=== PATIENT | female | born 1950 | race Caucasian/White ===

== ENCOUNTER 2018-04-03 09:37 | Inpatient (IN) | payer OTHER ==
[2018-04-03] MEDS ORDERED: ASPIRIN 81 MG CHEWABLE TAB PO ONE (10:17)
--- NOTE | 2018-04-03 10:17 | EDPHY ---
General - History Smoking Status: Former smoker Time Seen by Provider: 04/03/18 09:57 Narrative: CLINICAL IMPRESSION: Angina, chest tightness ASSESSMENT/PLAN: 67-year-old female with a reported past medical history of coronary artery disease by heart scan as well as an elevated calcium score of 250 presents to the emergency department with exertional chest pain yesterday and nonexertional chest pain today. Pain is not radiating and is not associated with nausea, vomiting, shortness of breath. Patient reports some left arm tingling. EKG shows normal sinus rhythm with no acute ST or T-wave changes, reviewed with Dr. Lagunas. Troponin negative. Lab work reassuring. Chest x-ray with no acute cardiopulmonary findings. Patient was given aspirin. She has a heart score 5. Based on this and risk factors, she will be admitted to the hospital for further cardiac evaluation. Patient is agreeable to this plan. She was stabilized in the ED prior to admission. Case discussed between myself and Arielle with hospitalist service. DIFFERENTIAL DX: Differential diagnosis includes but not limited to myocardial ischemia, pulmonary embolus, chest wall pain, pleural inflammation, musculoskeletal chest wall pain, aortic aneurysm, and pulmonary infectious causes. ED PROCEDURES: See lab and/or imaging results below ED COURSE: 10:13 a.m.: Patient seen and assessed by myself. EKG shows normal sinus rhythm , no acute ST or T-wave changes, reviewed with Dr. Lagunas. Plan for IV, fluid bolus, aspirin, chest x-ray, troponin. Patient seen examined by Dr. Tyler as well CHIEF COMPLAINT: Chest pain x1 day HPI: This is a 67-year-old female with a self-reported history of coronary artery disease who presents to the emergency department with chest tightness intermittently since yesterday. Patient reports in December of [address] coronary study with Dr. Clemens office and was told that she had "a lot of plaque in her coronaries" and that her calcium score was 250. She never consulted with a vehicle sales professional nor has she ever had a stress test or echocardiogram. She has been taking herbal remedies to help thin her blood and keep blood pressure and cholesterol controlled. She reports yesterday while shoveling snow off of her steps she developed substernal chest pressure. She stopped shoveling and the discomfort went away. This morning while laying on her left side in bed she developed chest pressure again and a "funny sensation in the left arm". She then reported to the ED. She is currently chest pain- free. No associated abdominal pain, nausea, vomiting. She reports having normal carotid artery scans. No radiating pain to the neck jaw or back. No recent illness, fever or chills. No cough. No underlying pulmonary disease. She reports her mother of vascular dementia but there is no known cardiac history in her family. She quit smoking in the . She does not drink alcohol. PAST MEDICAL HISTORY: Coronary artery disease, past history of kidney stones See nurse/triage notes for additional history if applicable Pertinent Past Surgical History: None reported Family History: Mother with vascular dementia Social History: Quit smoking , nondrinker REVIEW OF SYSTEMS: All other systems negative Constitutional: No fever, no chills, appetite change. Eyes: No discharge, vision change ENT: No sore throat, congestion, ear pain. Cardiovascular: No chest pain, no palpitations. Respiratory: No cough, no shortness of breath. Gastrointestinal: No abdominal pain, no vomiting, diarrhea. Genitourinary: No hematuria, dysuria, flank pain, pelvic pain Musculoskeletal: No back pain, joint swelling, joint pain, myalgias. Skin: No rashes, color change. Neurological: No headache, dizziness, weakness. PHYSICAL EXAM: General Appearance: Alert, oriented, appropriate, cooperative, NAD, denies chest pain currently well hydrated, non-toxic appearing, hypertensive, no hypoxia. HEENT:Oropharynx clear is no erythema or exudates, no tonsillar hypertrophy or asymmetry. Dentition without abnormality.] Neck: Supple, nontender, no lymphadenopathy, no midline pain, FROM, no meningismus. No carotid bruits auscultated Respiratory: There are no retractions, lungs are clear to auscultation. Cardiac: Regular rate and rhythm, no murmurs or gallops. Gastrointestinal: Abdomen is soft, nontender, bowel sounds normal, no masses/ hernia, no rigidity, guarding or focal peritoneal findings. Neurological: [ Alert and oriented x 3 Skin: Warm, dry, no rashes, no nodules on palpation. Musculoskeletal: Extremities are symmetrical, full range of motion, no tenderness, deformity, swelling, or erythema. No asymmetric leg swelling, calf pain or redness Psychiatric: Patient is oriented X 3, there is no agitation. MEDICAL DECISION MAKING: Patient was seen independently. Secondary supervising physician at time of evaluation was Dr. Lagunas. Diagnosis: Angina, chest tightness. New, requires workup Summary: See Assessment and Plan for summary of ED visit Clinical lab tests: ordered / reviewed. Independent visualization of images, tracing, or specimens: Yes. Decision to obtain medical records or history from someone other than the patient: No Review / Summarize previous medical records: None available Discussed patient with another provider: Dr. Lagunas, hospitalist Patient Progress: Stable for admission. (Joe Dillon) I evaluated patient independently of ZOYA Dillon and agree with her assessment and plan. Briefly, patient with concerning history of accelerating anginal type pain over last several days. Was unable to complete task of shovelling snow due to chest pain. HEART score not low risk and I discussed the need for her to be admitted for further evaluation. Reviewed EKG, no ischemic changes. Exam, regular rate and rhythm, lungs clear, alert, no edema. She agrees to plan. Concern for ACS. (Kristan Lagunas) - Objective Vital Signs: Initial Vital Signs Temperature (C) 36.7 C 04/03/18 09:45 Heart Rate 89 04/03/18 09:45 Respiratory Rate 16 04/03/18 09:45 Blood Pressure 158/104 H 04/03/18 09:45 O2 Sat (%) 99 04/03/18 09:45 O2 Delivery Mode Room Air Allergies/Adverse Reactions: Penicillins Allergy (Verified 04/03/18 12:04) Hives/Itching Sulfa (Sulfonamide Antibiotics) Allergy (Verified 04/03/18 12:04) Hives Home Medications: Medication Instructions Recorded Ascorbic Acid [Vitamin C 500 mg 500 mg PO DAILY 04/03/18 (*)] Calcium Carbonate [Oyster Shell 500 mg PO DAILY 04/03/18 Calcium 500 mg (*)] Cholecalciferol Vit D3 [Vitamin D3 1,000 units PO DAILY 04/03/18 (*)] Herbals/Supplements -Info Only 1 ea PO DAILY 04/03/18 Magnesium Oxide [Magnesium Oxide 400 mg PO DAILY 04/03/18 400 mg (*)] Vitamin B Complex [Vitamin B 1 each PO DAILY 04/03/18 Complex (OTC)] Laboratory Results: Laboratory Results 04/03/18 10:05 04/03/18 10:05 Medications Given: Ascorbic Acid (Vitamin C) 500 mg PO DAILY SABIHA Stop: 10/01/18 08:59 Last Admin: 04/04/18 10:34 Dose: 500 mg Aspirin (Aspirin) 325 mg PO DAILY SABIHA Stop: 10/01/18 09:14 Last Admin: 04/04/18 10:35 Dose: 325 mg Calcium Carbonate (Oyster Shell Calcium) 500 mg PO DAILY SABIHA Stop: 10/01/18 08:59 Last Admin: 04/04/18 10:35 Dose: 500 mg Cholecalciferol (Vitamin D) 1,000 units PO DAILY SABIHA Stop: 10/01/18 08:59 Last Admin: 04/04/18 10:34 Dose: 1,000 units Magnesium Oxide (Magnesium Oxide) 400 mg PO DAILY SABIHA Stop: 10/01/18 08:59 Last Admin: 04/04/18 10:35 Dose: 400 mg Temazepam (Restoril) 15 mg PO HS PRN PRN Reason: Sleep/Insomnia Stop: 09/30/18 15:42 Last Admin: 04/03/18 21:55 Dose: 15 mg Vitamin B Complex (Vitamin B Complex) 1 ea PO DAILY SABIHA Stop: 10/01/18 08:59 Last Admin: 04/04/18 10:34 Dose: 1 ea Discontinued Medications Aspirin (Aspirin) 324 mg PO EDNOW ONE Stop: 04/03/18 10:18 Last Admin: 04/03/18 10:42 Dose: 324 mg Point of Care Test Results: Chemistry 04/03/18 04/03/18 11:14 10:12 POC Troponin I 0.01 ng/mL ng/mL 0.01 ng/mL ng/mL (0.00-0.08) (0.00-0.08) Departure - Departure Disposition: [facility] Inpatient Acute Clinical Impression: Unstable angina, Chest tightness Condition: Fair
[2018-04-03 10:26] LABS: PLATELET COUNT 226 10^3/uL (150-400)
[2018-04-03] MEDS ORDERED: ONDANSETRON 4 MG/2 ML VIAL IVP PRN (14:20)
[2018-04-03] MEDS ORDERED: ONDANSETRON DISINTEGRATING 4 MG TAB PO PRN (14:20)
[2018-04-03] MEDS ORDERED: ACETAMINOPHEN 325 MG TAB PO PRN (14:20)
--- NOTE | 2018-04-03 14:57 | GHP ---
[f rep st] HISTORY AND PHYSICAL DATE OF ADMISSION: 04/03/2018 Ms. Moura is a 67-year-old female with history of a previous positive calcium score who presented with an episode of exertional chest pain on Sunday, which was 3 days prior to admission. She was feeling anxious and just unsettled all day. Yesterday she [place] finally warmed up. It was wet, heavy snow. She felt a squeezing in her chest that resolve d. It did not radiate. It was not associated with diaphoresis or shortness of breath. It sounds li ke she occasionally does some workout tapes and does not have a history of exertional anginal-type sy mptoms. She does not have PND, orthopnea, or lower extremity edema. She does not have heart failure symptoms. No cough. No fever. No chills. She has a family history of vascular dementia and stroke in her mother. REVIEW OF SYSTEMS: Complete 10-point review of systems conducted negative except as noted in the HPI . PAST MEDICAL HISTORY: Positive calcium score. ALLERGIES: Penicillin and sulfa. MEDICATIONS: A robust assortment of supplements including vitamin C, calcium carbonate, vitamin D3, mag oxide, and vitamin B. SOCIAL HISTORY: She lives in [facility]. No tobacco. Rare alcohol. FAMILY HISTORY: As in the HPI. PHYSICAL EXAMINATION: PRESENTING VITALS: Temperature 36.7; blood pressure 158/104, now 110/75; puls e 89, now 58; breathing 16 times a minute; 99% on room air. GENERAL: No acute distress. HEENT: Sc lerae anicteric. Oropharynx clear. Mucous membranes moist. NECK: Supple. No lymphadenopathy or J VD. LUNGS: Clear to auscultation bilaterally. HEART: S1, S2. ABDOMEN: Soft, nontender, nondiste nded. LOWER EXTREMITIES: No edema. Calves are nontender. SKIN: Without rash. NEUROLOGIC: Nonfo roxy. LABORATORY DATA: White count 4, hematocrit 41, platelets 226,000. Sodium 140, potassium 4.3, chlori de 107, bicarb 23, BUN 19, creatinine 0.8, glucose 120. [id number] troponin is 0.01 x 2. EKG interpreted by nc shows sinus at 62 with normal axis and intervals. No ST or T-wave changes. est x-ray shows no acute cardiopulmonary disease. I have discussed the case with Joe Dillon of the emergency department. ASSESSMENT/PLAN: A 67-year-old female with exertional chest pain concerning for angina. 1. Angina. The patient is not having a myocardial infarction. We will repeat one more troponin thi s afternoon and perform exercise stress test in the morning with nuclear imaging. 2. Hyperglycemia. We will check a metabolic panel in the morning. Nonfasting sample barely elevate d. 3. History of positive calcium score. We will check a lipid panel in the morning. 4. Hypertension present on admission, resolved. This is likely standard emergency room presenting h ypertension. DISPOSITION: On observation status. /[id number]/MODL
[2018-04-03] MEDS: TEMAZEPAM 15 MG CAP PO PRN (21:55)
[2018-04-04] MEDS ORDERED: Herbals/Supplements -Info Only PO SCH (09:00)
--- NOTE | 2018-04-04 09:15 | HOSPPROG ---
Hospitalist Progress Note Assessment/Plan: 67 yo F w here w likely anginal sx, + trop cp: cardiology to see today for likely cath start asa hyperlipidemia: ldl 112 warrants statin this situation she is resistant htn: variable she states she does not have htn dispo: pending cardiology eval Subjective: trop low level +. no events tele (interp by me). case d/w dr vanessa Objective: Vital Signs Temp Pulse Resp BP Pulse Ox 36.3 C 65 16 99/66 L 95 04/04/18 04:00 04/04/18 04:00 04/04/18 04:00 04/04/18 04:00 04/04/18 04:00 Laboratory Results 04/04/18 03:16 04/03/18 04/04/18 04/05/18 05:59 05:59 05:59 Intake Total 1400 Balance 1400 - Physical Exam Constitutional: no apparent distress, appears nourished Eyes: PERRL, anicteric sclera Ears, Nose, Mouth, Throat: moist mucous membranes, hearing normal Cardiovascular: regular rate and rhythym, no murmur, rub, or gallop Respiratory: no respiratory distress, no rales or rhonchi Gastrointestinal: normoactive bowel sounds, soft, non-tender abdomen Genitourinary: no bladder fullness, No guy in urethra Skin: warm, normal color Musculoskeletal: full muscle strength, no muscle tenderness Neurologic: AAOx3, sensation intact bilaterally Psychiatric: interacting appropriately Lymph, Heme, Immunologic: no cervical LAD ICD10 Worksheet Patient Problems: Problems Problem Status Onset Chest tightness Acute Unstable angina Acute
[2018-04-04] MEDS ORDERED: diphenhydrAMINE 25 MG CAP PO ONE (09:52)
[2018-04-04] MEDS ORDERED: DIAZEPAM 5 MG TAB PO ONE (09:52)
[2018-04-04] MEDS ORDERED: NITROGLYCERIN 0.4 MG BTL SL PRN (09:52)
[2018-04-04] MEDS ORDERED: FAMOTIDINE 20 MG TAB PO ONE (09:52)
[2018-04-04] MEDS ORDERED: NS 1,000 ML IV SCH ×2 (10:00→14:30)
[2018-04-04] MEDS: ASCORBIC ACID 500 MG TAB PO SCH (10:34)
[2018-04-04] MEDS: CHOLECALCIFEROL VIT D3 1,000 UNITS TAB PO SCH (10:34)
[2018-04-04] MEDS: VITAMIN B COMPLEX 1 EA CAP/TAB PO SCH (10:34)
[2018-04-04] MEDS: CALCIUM CARBONATE 500 MG TAB PO SCH (10:35)
[2018-04-04] MEDS: MAGNESIUM OXIDE 400 MG TAB PO SCH (10:35)
[2018-04-04] MEDS: ASPIRIN 325 MG TAB PO SCH (10:35)
--- NOTE | 2018-04-04 10:41 | GCON ---
[f rep st] CONSULTATION CARDIOLOGY CONSULT DATE OF CONSULTATION: 04/04/2018 REFERRING PHYSICIAN: Joey CHIEF COMPLAINT: Chest pain. HISTORY OF PRESENT ILLNESS: We were asked by Dr. Cook to visit with the patient. The patient is a pleasant 67-year-old female with a history of positive calcium score. She tells me that her score w as 250 based on December 2016, heart scan. She has been treating this with nattokinase and other sup plements. She has previously declined statin therapy. The only other significant history is kidney stone. Four days prior to admission, she was walking up hill and started to feel unusually short of breath. She general felt unwell the rest of that day. On Sunday, she was having intermittent symptoms of an xiety and hot flashes, which felt different than previous panic attacks. She felt there was somethin g wrong in her chest. The following day, which was 2 days prior to admission, she was shoveling snow and had squeezing chest pressure that resolved with rest. She has never had this symptom shoveling snow before. She had some radiation of pain to both shoulders. Then, yesterday, she presented to e ER due to intermittent sensation of anxiety and this hot flash, diaphoresis symptom. Overnight, he r troponin has become minimally positive. This morning, she was in her room trying to open the blind s and had some bilateral shoulder discomfort with a sensation of anxiety. She has not had palpitations or syncope. No lower extremity edema. Symptoms started 5 days ago and she previously exercise without limitation. REVIEW OF SYSTEMS: A full 10-point review of systems is performed and is negative, except that which is in history of Present Illness. ALLERGIES: Penicillin and sulfa. PAST MEDICAL HISTORY: 1. Positive calcium score as detailed above. 2. Kidney stone. OUTPATIENT MEDICATIONS: Several supplements, including vitamin C, calcium, vitamin D3, herbal supple ments, magnesium oxide, vitamin B. SOCIAL HISTORY: The patient lives alone. She does not smoke cigarettes. She rarely drinks alcohol. FAMILY HISTORY: Her mother had vascular dementia. DIAGNOSTIC DATA: EKG reviewed by me x2 shows sinus rhythm without ischemic changes. Chest x-ray reviewed by me shows no acute cardiopulmonary process. LABORATORY DATA: CBC is normal. Basic metabolic panel normal, except for BUN of 24. First 2 tropon ins were negative. At 1540 yesterday afternoon, it was 0.068 and at 2132 yesterday was 0.037. Her L DL cholesterol is 112. ASSESSMENT AND PLAN: 67-year-old female with known positive calcium score, borderline dyslipidemia, admitted with unstable angina and minimally elevated troponins. No ST deviation on her EKG. 1. Chest pain/unstable angina/coronary disease: I do not think that stress test is prudent given he r accelerating symptoms. We discussed the option of diagnostic and possibly therapeutic coronary ang iogram and she agrees to proceed. Risks, benefits, alternatives were reviewed in detail. This will be scheduled for this morning. She is currently n.p.o. I have added aspirin and Lipitor to her drug regimen. 2. Dyslipidemia: Her LDL cholesterol is mildly elevated at 112. Add statin therapy. More recommendations will follow after angiogram. /[id number]/MODL
[2018-04-04 10:59] LABS: PLATELET COUNT 217 10^3/uL (150-400)
[2018-04-04 11:10] LABS: INR 1.03 (0.83-1.16); PROTIME(PATIENT) 13.1 SEC (12.0-15.0)
[2018-04-04] MEDS: ATORVASTATIN CALCIUM 20 MG TAB PO SCH (11:55)
[2018-04-04] MEDS ORDERED: LIDOCAINE 1% 300 MG/30 ML SDV ONE (13:19)
[2018-04-04] MEDS ORDERED: IOPAMIDOL (ISOVUE-370) 150 ML BTL IV ONE (13:20)
[2018-04-04] MEDS ORDERED: MIDAZOLAM 2 MG/2 ML VIAL ONE ×2 (13:20→14:22)
[2018-04-04] MEDS ORDERED: fentaNYL 100 MCG/2 ML INJ ONE ×2 (13:20→14:22)
--- NOTE | 2018-04-04 13:45 | PDHPUP ---
History & Physical Update H&P update statement: This history and physical update is based on an assessment of the patient which was completed after admission or registration (within 24 hours), but prior to the surgery/procedure. H&P update: H&P reviewed & patient examined, no change in patient's condition since H&P completed
--- NOTE | 2018-04-04 13:46 | PDPROPOC ---
Sedation Plan of Care Sedation Plan of Care: vital signs stable, mental status noted, patient educated of risks, benefits, alternatives, patient can tolerate sedation ASA Classification: ASA 2 Planned drugs: fentanyl, midazolam Mallampati Score: Class 2 Mallampati Reference Image:
[2018-04-04] MEDS ORDERED: BIVALIRUDIN 250 MG/5 ML VIAL IV ONE (14:17)
[2018-04-04] MEDS ORDERED: EPINEPHrine 1 MG/10 ML SYR IVP ONE (14:17)
--- NOTE | 2018-04-04 14:20 | PDDXCAT ---
Diagnostic Cath Note - . Date: 04/04/18 Contract Administration Specialist: Justin Indication: other (unstable angina) - Procedure Access: right groin Procedure: left heart catheterization - Materials Left Heart Cath size: 6F Left Heart Cath materials: standard multipack (JL4, JR4, pigtail) - Findings-Left Heart Catheterization LM: The left main is long and bifurcates into the LAD and left circumflex. There is no left main coronary disease. LAD: There is a 95% mid LAD stenosis with mildly decreased rapidity of flow distal to this. 2 small diagonal branches with moderate ostial disease in each. LCX: The left circumflex is normal. There is a single large obtuse marginal with sub branches. No significant coronary disease. RCA: The right coronary artery is dominant. No significant coronary disease. EDP: 12 mm of mercury LVEF: 65% Wall motion: Normal - Findings-Right Heart Catheterization AO: 101/53. There is no aortic stenosis. Complications: none Estimated blood loss: <50ml Closure method: Angioseal Assessment: Critical single-vessel disease in the LAD. Unstable angina. Interventional consult with Dr. Danis Andrade. Plan: Plan for direct PCI of LAD lesion by Dr. Andrade. Patient Problems: Problems Problem Status Onset Unstable angina Acute Chest tightness Acute
--- NOTE | 2018-04-04 14:23 | ASMTCMCOM ---
CM Note CM Note Notes: 04/04/2018 Case Management Note Discussed pt during rounds today. Pt admitted for chest tightness. Pt to clinical lab specialist. There are no therapy evals ordered at this time. Case Management d/c poc: anticipating independent with follow up as directed. Case Management available if needs change. Date Signed: 04/04/2018 02:21 PM Electronically Signed By:Mee Lynch RN
[2018-04-04] MEDS ORDERED: PRASUGREL HCL 10 MG TAB PO ONE (14:30)
[2018-04-04] MEDS ORDERED: HYDROCODONE/APAP 5/325 TAB PO PRN (14:30)
[2018-04-04] MEDS ORDERED: ATROPINE SULFATE 1 MG/10 ML SYR IVP PRN (14:30)
[2018-04-04] MEDS ORDERED: PRASUGREL HCL 10 MG TAB ONE (14:32)
--- NOTE | 2018-04-04 14:36 | PDDXCAT ---
Diagnostic Cath Note - . Date: 04/04/18 Property Controller: Raymond Indication: other (CAD with acute coronary syndrome.) - Procedure Access: right groin Estimated blood loss: <50ml Closure method: Angioseal Assessment: Successful percutaneous coronary intervention of the left anterior descending using a single drug-coated stent. Intervention: Please refer to the diagnostic cardiac cath report by Dr. Susy Anderson. Briefly, that study demonstrated normal left ventricular systolic function and single vessel CAD with an 80% stenosis in the mid left anterior descending. Based on the patient's clinical history and diagnostic angiography, the decision was made to perform percutaneous coronary intervention of the left anterior descending. The patient received intravenous Angiomax. A 6 Dominican CLS 3.5 guide catheter was advanced to the left main. An Intuition guidewire was advanced to the apical portion of the LAD. Predilatation of the target lesion was performed using a 2.5 x 12 mm Emerge balloon. A 3.5x16 mm Synergy stent was then advanced into position and deployed at high pressure. Final angiograms demonstrated 0% residual stenosis and DO-III flow. Patient Problems: Problems Problem Status Onset Chest tightness Acute Unstable angina Acute
[2018-04-04] MEDS: TEMAZEPAM 15 MG CAP PO PRN (22:39)
--- NOTE | 2018-04-05 07:13 | PDMN ---
Medical Necessity Medical necessity: Change to IP, as of 04/04/18, per MD & MCG M-40; los >2 mn for ongoing management of unstable angina w/elevated troponins; requiring further monitoring, cardiac cath & med management
[2018-04-05 07:48] VITALS: BP 90/64
[2018-04-05] MEDS: CALCIUM CARBONATE 500 MG TAB PO SCH (08:32)
[2018-04-05] MEDS: ATORVASTATIN CALCIUM 20 MG TAB PO SCH (08:32)
[2018-04-05] MEDS: VITAMIN B COMPLEX 1 EA CAP/TAB PO SCH (08:32)
[2018-04-05] MEDS: MAGNESIUM OXIDE 400 MG TAB PO SCH (08:32)
[2018-04-05] MEDS: ASCORBIC ACID 500 MG TAB PO SCH (08:32)
[2018-04-05] MEDS: CHOLECALCIFEROL VIT D3 1,000 UNITS TAB PO SCH (08:32)
[2018-04-05] MEDS: ASPIRIN 325 MG TAB PO SCH (08:36)
[2018-04-05] MEDS ORDERED: PRASUGREL HCL 5 MG TAB PO SCH (09:00)
--- NOTE | 2018-04-05 09:09 | CPEKG ---
Test Reason : OPEN Blood Pressure : / mmHG Vent. Rate : 062 BPM Atrial Rate : 063 BPM P-R Int : 152 ms QRS Dur : 094 ms QT Int : 415 ms P-R-T Axes : 069 056 062 degrees QTc Int : 422 ms Sinus rhythm Confirmed by Kristan Lagunas ([id number]) on 04/05/2018 9:08:41 AM Referred By: Kristan Lagunas Confirmed By:Kristan Lagunas
--- NOTE | 2018-04-05 10:34 | PDCARPN ---
Cardiology Progress Note Assessment/Plan: Assessment/plan: 67-year-old female admitted with unstable angina. Found to have high-grade mid LAD stenosis treated with a 3.5 x 16 mm synergy stent. Also mild dyslipidemia. 1. Coronary disease/status post PCI: She appears stable. The importance of uninterrupted dual antiplatelet therapy was reviewed in detail with the patient. She agrees to take aspirin and Effient. Aspirin dose can be decreased to 81 mg in 1 month. Aspirin should continue for life. Effient at least 1 year. I have also spent a long time discussing the merits of statin therapy. She will consider whether not she wants to take a statin. She will consider enrollment in cardiac rehab. 2. Dyslipidemia: LDL is 112. Statin as above. She is stable for discharge from a cardiac standpoint. Follow up in 1 week for groin check. Enroll in cardiac rehab. 04/05/18 10:35 Subjective: She feels much better. No further episodes of anxious feeling, chest pain or dyspnea. Minimal right groin pain. Reviewed/Discussed With: hospitalist Objective: Vital Signs (8 Hrs) Temp Pulse Resp BP Pulse Ox 04/05/18 07:47 37.0 C 57 L 18 90/64 L 99 04/05/18 04:00 36.5 C 57 L 16 108/65 98 Intake/Output (24 Hrs) 04/04/18 04/05/18 04/06/18 05:59 05:59 05:59 Intake Total 200 Balance 200 Intake: Oral (ml) 200 Other: Intake Quantity Yes Sufficient Number of Voids Toilet 2 No acute distress JVP less than 10. Regular rate and rhythm without murmur gallop Lungs clear bilaterally wheeze rhonchi rales Right femoral arteriotomy site clean dry and intact. No bruit. No ecchymoses or hematoma. No lower extremity edema. Intact distal pulses Neuro alert and oriented x3 without gross focal neuro deficits. Appropriate mood and affect. Result Diagrams: 04/04/18 10:50 04/04/18 10:50 EKG: Sinus rhythm with anterior T-wave inversion ICD10 Worksheet Patient Problems: Problems Problem Status Onset Unstable angina Acute Chest tightness Acute
--- NOTE | 2018-04-05 10:48 | ASDISCHSUM ---
Discharge Information Plan Status:Home with No Needs Medically Cleared to Leave:04/04/2018 Discharge Date:04/04/2018 CM D/C Disposition:Home, Routine, Self-Care ADT D/C Disposition:Home, Routine, Self-Care Projected Discharge Date:04/04/2018 Transportation at D/C: Discharge Delay Reason: Follow-Up Date:04/04/2018 Discharge Slot: Final Diagnosis: Placement Information Patient Contact Information Contact Name:DANIELLA Relationship:Kyle Address: Work Phone: City: [facility] Phone: State/Zip Code: Email: Financial Information Financial Class:Medicare Primary Plan Desc:MEDICARE INPATIENT Primary Plan Number:[id number] Secondary Plan Desc:LIU Secondary Plan Number:[id number] Assessment Information LACE LACE Length of stay for Answers: Less than 1 day current admission Acuity / Level of Answers: No Care: Did the patient have an inpatient admission? Comorbidities - select Answers: Coronary Artery Disease all that apply # of Emergency department Answers: 1-2 visits in the last 6 months Score: 3 Date Signed: 04/05/2018 10:46 AM Electronically Signed By:Mee Lynch RN [facility] Progress Note CM Note CM Note Notes: 04/04/2018 Case Management Note Discussed pt during rounds today. Pt admitted for chest tightness. Pt to assistant laboratory director. There are no therapy evals ordered at this time. Case Management d/c poc: anticipating independent with follow up as directed. Case Management available if needs change. Date Signed: 04/04/2018 02:21 PM Electronically Signed By:Mee Lynch RN Case Management Discharge Plan Note Case Management Discharge Discharge Order Complete? Answers: Yes Patient to Obtain Answers: via Family Medications Transportation Arranged Answers: Family/Friends Discharge Comments Notes: 04/05/2018 Case Management Note Pt to d/c independent with follow up as directed. Date Signed: 04/05/2018 10:47 AM Electronically Signed By:Mee Lynch RN Intervention Information Intervention Type:*BHAVANI-Signed Date of Service:04/04/2018 10:20 AM Patient Type:Observation Staff Member:Ewa Hobbs Hours: Discipline: Severity: Comment:
--- NOTE | 2018-04-05 16:56 | GDS ---
[f rep st] DISCHARGE SUMMARY DISCHARGE DIAGNOSES: 1. Coronary artery disease, status post stent to the left anterior descending. 2. Mum-PL-gxyepopbz myocardial infarction. 3. Hyperlipidemia. HISTORY: The patient is a 67-year-old female who presented with chest pain. She had a troponin elev ation and her story was consistent with angina. Cardiology was consulted. She underwent cardiac cat heterization. She was found to have an LAD lesion that was stented. She will discharge on aspirin a nd Plavix. Her LDL is 112, which warrants statin therapy; however, she is resistant, but did take a prescription home and will consider taking it. DISCHARGE MEDICATIONS: Please see computerized record for full detailed list. New medication: 1. Aspirin 325 mg p.o. daily. 2. Effient 5 mg p.o. daily. 3. Lipitor 20 mg p.o. daily. ADDITIONAL DISCHARGE INSTRUCTIONS: 1. Continue Effient for 1 year. 2. Decrease aspirin dose 81 mg p.o. daily. In 1 month. 3. Follow up with Susy Anderson in 1 week for groin check. Greater than 30 minutes time was spent arranging this discharge. Patient seen examined by me on the day of discharge. /[id number]/MODL
--- NOTE | 2018-04-09 09:43 | PQFORM ---
PHYSICIAN QUERY FORM Needs Your Response This query form is being sent to you to assure this patient record is coded properly. Please respond to the question below: MERCHANT TAILOR QUESTION: Dr Davison Please help clarify some conflicting documentation on this patients chart. Discharge summary states Non STEMI but chart seems to be reflecting Unstable Angina with documentation showing - EKG x2 without ischemic changes - no ST or T wave changes troponin changes but - 'story consistent with unstable angina' h/p = patient is not having an RI. For correct coding purposes please clarify whether this patient had a Non Stemi RI or Unstable Angina ? _x_ Non ST Myocardial Infarction - troponin became POSITIVE __ Unstable angina __ Other (Please specify ) __ Unable to determine Thank You for your help Lanie [employer] Mgr INSTRUCTIONS FOR RESPONSE: Answer question by clicking on the "Edit Document" button. Move cursor to area below the stars. When complete, hit "Save." Click on the "Sign" button, then click "Sign" again. Type in your PIN and hit "Enter." MTDD
--- NOTE | 2018-04-10 11:05 | CPEKG ---
Test Reason : OPEN Blood Pressure : / mmHG Vent. Rate : 059 BPM Atrial Rate : 058 BPM P-R Int : 150 ms QRS Dur : 097 ms QT Int : 417 ms P-R-T Axes : 059 037 036 degrees QTc Int : 414 ms Sinus rhythm Incomplete right bundle branch block Confirmed by Sylvester Leary ([id number]) on 04/10/2018 11:05:34 AM Referred By: Jonathan Zaragoza Confirmed By:Sylvester Leary
--- NOTE | 2018-04-10 11:19 | CPEKG ---
Test Reason : OPEN Blood Pressure : / mmHG Vent. Rate : 061 BPM Atrial Rate : 050 BPM P-R Int : 162 ms QRS Dur : 097 ms QT Int : 388 ms P-R-T Axes : 063 049 075 degrees QTc Int : 391 ms Sinus rhythm, sinus arrhythmia Nonspecific T abnrm, anterolateral leads consider ischemia. Confirmed by Sylvester Leary ([id number]) on 04/10/2018 11:18:40 AM Referred By: Jonathan Zaragoza Confirmed By:Sylvester Leary
== END 2018-04-05 11:45 | disposition home or self-care (01) | DRG 247 ==
LOC: F2W 12:42 → OBSVTOIN 04-04 17:16
PROVIDERS: ADMIT Internal Medicine; ATTEND Internal Medicine
PROC: 027034Z Dilation of Coronary Artery, One Artery with Drug-eluting Intraluminal Device, Percutaneous Approach (ICD-10-PCS; principal; 2018-04-04)
PROC: B2101ZZ Fluoroscopy of Single Coronary Artery using Low Osmolar Contrast (ICD-10-PCS; 2018-04-04)
PROC: 4A023N8 Measurement of Cardiac Sampling and Pressure, Bilateral, Percutaneous Approach (ICD-10-PCS; 2018-04-04)
DX: I21.4 Non-ST elevation (NSTEMI) myocardial infarction (principal); I25.10 Atherosclerotic heart disease of native coronary artery without angina pectoris; E78.5 Hyperlipidemia, unspecified; Z87.891 Personal history of nicotine dependence; Z87.442 Personal history of urinary calculi
CPT/HCPCS: 84484-ER; C1725; C1760; C1769; C1874; C1887; C9600; G0378; J0583; J1644; J2250; J2270; J3010; Q9967

== ENCOUNTER 2018-04-05 21:25 | Emergency (ER) | payer OTHER ==
[2018-04-05] MEDS ORDERED: NS 500 ML IV ONE (21:41)
[2018-04-05 22:03] LABS: PLATELET COUNT 220 10^3/uL (150-400)
--- NOTE | 2018-04-05 22:26 | EDPHY ---
H & P Stated Complaint: DIZZY, CARDIAC STENT PLACED YESTERDAY Time Seen by Provider: 04/05/18 21:41 HPI/ROS: CHIEF COMPLAINT: Dizziness HISTORY OF PRESENT ILLNESS: 67-year-old female s/p cardiac stent placement yesterday presents with lightheadedness. Just prior to arrival, she was at home , began to feel slightly lightheaded and became concerned. Associated with slight nausea. The symptoms were transient and have now resolved. No chest pressure or shortness of breath. REVIEW OF SYSTEMS: complete 10 point ROS reviewed and is negative except for the noted elements in the HPI - Personal History Current Tetanus Diphtheria and Acellular Pertussis (TDAP): Yes - Medical/Surgical History Hx Asthma: No Hx Chronic Respiratory Disease: No Hx Diabetes: No Hx Cardiac Disease: Yes Hx Renal Disease: No Hx Cirrhosis: No Hx Alcoholism: No Hx HIV/AIDS: No Hx Splenectomy or Spleen Trauma: No Other PMH: CAD, Kidney stone, CARDIAC STENT 04/04/2018 - Social History Smoking Status: Former smoker Alcohol Use: Sober Drug Use: None - Physical Exam Exam: General Appearance: Alert, pleasant Eyes: Pupils equal and round, no conjunctival pallor ENT, Mouth: Mucous membranes moist Neck: Normal inspection Respiratory: Lungs are clear to auscultation Cardiovascular: Regular rate and rhythm, no murmur Gastrointestinal: Abdomen is soft and nontender Neurological: A&O, nonfocal, normal gait Skin: Warm and dry, no rash Extremities: Nontender, no pedal edema Psychiatric: Mood and affect normal Constitutional: Initial Vital Signs Temperature (C) 36.4 C 04/05/18 21:30 Heart Rate 76 04/05/18 21:30 Respiratory Rate 16 04/05/18 21:30 Blood Pressure 134/104 H 04/05/18 21:30 O2 Sat (%) 94 04/05/18 21:30 O2 Delivery Mode Room Air Allergies/Adverse Reactions: Penicillins Allergy (Verified 04/03/18 12:04) Hives/Itching Sulfa (Sulfonamide Antibiotics) Allergy (Verified 04/03/18 12:04) Hives Home Medications: Medication Instructions Recorded Ascorbic Acid [Vitamin C 500 mg 500 mg PO DAILY 04/03/18 (*)] Calcium Carbonate [Oyster Shell 500 mg PO DAILY 04/03/18 Calcium 500 mg (*)] Cholecalciferol Vit D3 [Vitamin D3 1,000 units PO DAILY 04/03/18 (*)] Herbals/Supplements -Info Only 1 ea PO DAILY 04/03/18 Magnesium Oxide [Magnesium Oxide 400 mg PO DAILY 04/03/18 400 mg (*)] Vitamin B Complex [Vitamin B 1 each PO DAILY 04/03/18 Complex (OTC)] Aspirin [Aspirin 325 mg (*)] 325 mg PO DAILY #30 tab 04/05/18 Atorvastatin Calcium [Lipitor 20 20 mg PO DAILY #30 tab 04/05/18 mg (*)] Effient 04/05/18 Prasugrel HCl [Effient 5mg (*)] 5 mg PO DAILY #30 tab 04/05/18 Medical Decision Making - Diagnostics EKG Interpretation: EKG interpreted by me reveals normal sinus rhythm, rate 60, biphasic T-waves in leads V2 and V3. Interpretation: Abnormal EKG. Similar to EKG dated 04/04/2018. ED Course/Re-evaluation: This patient presents with transient lightheadedness and nausea after recent cardiac stent placement. Vital signs are normal and manager of sales reveals normal sinus rhythm. Stat EKG reveals nonspecific T-wave abnormalities in the anterior leads. Laboratory tests reveal elevated BUN, consistent with dehydration. IV normal saline 500 mL given and patient drank a bottle of water. Feels better. Feel that she is safe and stable for discharge home. There is no evidence of stent occlusion, dysrhythmia, hypotension or other concerning etiology. - Data Points Laboratory Results: Laboratory Results 04/05/18 21:49 04/05/18 21:49 04/05/18 04/05/18 04/05/18 21:51 21:49 21:49 WBC 7.20 10^3/uL 10^3/uL (3.80-9.50) RBC 4.35 10^6/uL 10^6/uL (4.18-5.33) Hgb 12.9 g/dL g/dL (12.6-16.3) Hct 38.4 % % (38.0-47.0) MCV 88.3 fL fL (81.5-99.8) MCH 29.7 pg pg (27.9-34.1) MCHC 33.6 g/dL g/dL (32.4-36.7) RDW 13.0 % % (11.5-15.2) Plt Count 220 10^3/uL 10^3/uL (150-400) MPV 10.9 fL fL (8.7-11.7) Neut % (Auto) 62.1 % % (39.3-74.2) Lymph % (Auto) 27.5 % % (15.0-45.0) [place] % (Auto) 6.8 % % (4.5-13.0) Eos % (Auto) 2.5 % % (0.6-7.6) Baso % (Auto) 0.8 % % (0.3-1.7) Nucleat RBC Rel Count 0.0 % % (0.0-0.2) Absolute Neuts (auto) 4.47 10^3/uL 10^3/uL (1.70-6.50) Absolute Lymphs (auto) 1.98 10^3/uL 10^3/uL (1.00-3.00) Absolute Monos (auto) 0.49 10^3/uL 10^3/uL (0.30-0.80) Absolute Eos (auto) 0.18 10^3/uL 10^3/uL (0.03-0.40) Absolute Basos (auto) 0.06 10^3/uL 10^3/uL (0.02-0.10) Absolute Nucleated RBC 0.00 10^3/uL 10^3/uL (0-0.01) Immature Gran % 0.3 % % (0.0-1.1) Immature Gran # 0.02 10^3/uL 10^3/uL (0.00-0.10) Sodium 137 mEq/L mEq/L (135-145) Potassium 3.7 mEq/L mEq/L (3.5-5.2) Chloride 104 mEq/L mEq/L (97-110) Carbon Dioxide 24 mEq/l mEq/l (22-31) Anion Gap 9 mEq/L mEq/L (6-14) BUN 27 mg/dL H mg/dL (7-23) Creatinine 0.9 mg/dL mg/dL (0.6-1.0) Estimated GFR > 60 Glucose 147 mg/dL H mg/dL (70-100) Calcium 9.3 mg/dL mg/dL (8.5-10.4) POC Troponin I 0.02 ng/mL ng/mL (0.00-0.08) NT-Pro-B Natriuret Pep 30 pg/mL pg/mL (0-125) Medications Given: Discontinued Medications Sodium Chloride (Ns) 500 mls @ 0 mls/hr IV EDNOW ONE; Wide Open PRN Reason: Protocol Stop: 04/05/18 21:42 Last Admin: 04/05/18 21:51 Dose: 500 mls Point of Care Test Results: Chemistry 04/05/18 21:51 POC Troponin I 0.02 ng/mL ng/mL (0.00-0.08) Departure - Departure Disposition: Home, Routine, Self-Care Clinical Impression: Lightheadedness Condition: Good Instructions: Lightheadedness (ED) Additional Instructions: Drink plenty of fluids. Return for worsening symptoms or any concerns. Referrals: Elsie Martin MD [Primary Care Provider] - As per Instructions
[2018-04-05 22:44] VITALS: BP 132/86
--- NOTE | 2018-04-08 14:44 | CPEKG ---
Test Reason : OPEN Blood Pressure : / mmHG Vent. Rate : 060 BPM Atrial Rate : 060 BPM P-R Int : 153 ms QRS Dur : 103 ms QT Int : 420 ms P-R-T Axes : 074 062 088 degrees QTc Int : 420 ms Sinus rhythm Nonspecific T abnrm, anterolateral leads Confirmed by Valerie Ordaz ([id number]) on 04/08/2018 2:44:27 PM Referred By: Valerie Ordaz Confirmed By:Valerie Ordaz
== END 2018-04-05 23:04 | disposition home or self-care (01) ==
DX: R42 Dizziness and giddiness (principal); I25.10 Atherosclerotic heart disease of native coronary artery without angina pectoris; E86.9 Volume depletion, unspecified; Z95.5 Presence of coronary angioplasty implant and graft; Z87.891 Personal history of nicotine dependence
CPT/HCPCS: 84484-ER

== ENCOUNTER 2018-04-11 08:51 | Emergency (ER) | payer OTHER ==
[2018-04-11] MEDS ORDERED: NS 500 ML IV ONE (09:14)
--- NOTE | 2018-04-11 09:17 | EDPHY ---
H & P Stated Complaint: Stent placed last week, feels like heart is racing Time Seen by Provider: 04/11/18 09:05 HPI/ROS: CHIEF COMPLAINT: Palpitations HISTORY OF PRESENT ILLNESS: Patient is a 67-year-old female who comes to the emergency department complaining of palpitations that she felt about 2 hr ago. She was concerned because she had a cardiac stent placed in her LAD 1 week ago. She presented 1 week ago with a non ST elevated VT and had a single lesion in her LAD that was successfully stented. Since that she has had increased anxiety and has been to the ER several times. She states that she felt well yesterday but woke up this morning and felt like her heart was racing. She took her pulse and states that it was 80 and usually her pulse is 60. No shortness of breath. No chest pain. Her symptoms resolved after about an hour and are now gone. She reports a history of panic attacks the several decades ago but has not had any in a long time. No recent fevers or illness. No lightheadedness or dizziness. No GI symptoms. No diaphoresis. Severity: Moderate Modifying factors: None REVIEW OF SYSTEMS: Constitutional: denies: chills, fever, recent illness, recent injury EENTM: denies: blurred vision, double vision, nose congestion Respiratory: denies: cough, shortness of breath Cardiac: See HPI denies: chest pain, irregular heart rate, lightheadedness Gastrointestinal/Abdominal: denies: abdominal pain, diarrhea, nausea, vomiting, blood streaked stools Genitourinary: denies: dysuria, frequency, hematuria, pain Musculoskeletal: denies: joint pain, muscle pain Skin: denies: lesions, rash, jaundice, bruising Neurological: denies: headache, numbness, paresthesia, tingling, dizziness, weakness Hematologic/Lymphatic: denies: blood clots, easy bleeding, easy bruising Immunologic/allergic: denies: HIV/AIDS, transplant 10 systems reviewed and negative except as noted EXAM: GENERAL: Well-appearing, well-nourished and in no acute distress. HEAD: Atraumatic, normocephalic. EYES: Pupils equal round and reactive to light, extraocular movements intact, sclera anicteric, conjunctiva are normal. ENT: TMs normal, nares patent, oropharynx clear without exudates. Moist mucous membranes. NECK: Normal range of motion, supple without lymphadenopathy or JVD. LUNGS: Breath sounds clear to auscultation bilaterally and equal. No wheezes rales or rhonchi. HEART: Regular rate and rhythm without murmurs, rubs or gallops. ABDOMEN: Soft, nontender, normoactive bowel sounds. No guarding, no rebound. No masses appreciated. BACK: No CVA tenderness, no spinal tenderness, step-offs or deformities EXTREMITIES: Normal range of motion, no pitting or edema. No clubbing or cyanosis. NEUROLOGICAL: Cranial nerves II through XII grossly intact. Normal speech, normal gait. 5/5 strength, normal movement in all extremities, normal sensation , normal reflexes PSYCH: Normal mood, normal affect. SKIN: Warm, dry, normal turgor, no visible rashes or lesions. Source: Patient Exam Limitations: No limitations - Personal History Current Tetanus/Diphtheria Vaccine: Yes Current Tetanus Diphtheria and Acellular Pertussis (TDAP): Yes - Medical/Surgical History Hx Asthma: No Hx Chronic Respiratory Disease: No Hx Diabetes: No Hx Cardiac Disease: Yes Hx Renal Disease: No Hx Cirrhosis: No Hx Alcoholism: No Hx HIV/AIDS: No Hx Splenectomy or Spleen Trauma: No Other PMH: CAD, Kidney stone, CARDIAC STENT 04/04/2018 - Family History Significant Family History: No pertinent family hx - Social History Smoking Status: Former smoker Alcohol Use: None Constitutional: Initial Vital Signs Temperature (C) 36.7 C 04/11/18 08:53 Heart Rate 87 04/11/18 08:53 Respiratory Rate 18 04/11/18 08:53 Blood Pressure 156/103 H 04/11/18 08:53 O2 Sat (%) 96 04/11/18 08:53 O2 Delivery Mode Room Air Allergies/Adverse Reactions: Penicillins Allergy (Verified 04/03/18 12:04) Hives/Itching Sulfa (Sulfonamide Antibiotics) Allergy (Verified 04/03/18 12:04) Hives Home Medications: Medication Instructions Recorded Ascorbic Acid [Vitamin C 500 mg 500 mg PO DAILY 04/03/18 (*)] Calcium Carbonate [Oyster Shell 500 mg PO DAILY 04/03/18 Calcium 500 mg (*)] Cholecalciferol Vit D3 [Vitamin D3 1,000 units PO DAILY 04/03/18 (*)] Herbals/Supplements -Info Only 1 ea PO DAILY 04/03/18 Magnesium Oxide [Magnesium Oxide 400 mg PO DAILY 04/03/18 400 mg (*)] Vitamin B Complex [Vitamin B 1 each PO DAILY 04/03/18 Complex (OTC)] Aspirin [Aspirin 325 mg (*)] 325 mg PO DAILY #30 tab 04/05/18 Atorvastatin Calcium [Lipitor 20 20 mg PO DAILY #30 tab 04/05/18 mg (*)] Effient 04/05/18 Prasugrel HCl [Effient 5mg (*)] 5 mg PO DAILY #30 tab 04/05/18 Medical Decision Making - Diagnostics EKG Interpretation: An EKG obtained and was read and documented in trace view. Please see trace view for full reading and report. The sinus rhythm, no acute ischemic changes, similar to previous ED Course/Re-evaluation: 10:00 a.m. the patient remains asymptomatic. Her lab work is reassuring. She thinks that she was just anxious. She declines further observation or treatment. We discussed follow-up. We discussed indications for returning. She feels reassured. Differential Diagnosis: Partial list of the Differential diagnosis considered include but were not limited to; arrhythmia, anxiety and although unlikely based on the history and physical exam, I also considered pericarditis, acute coronary disease, infection. I discussed these differential diagnoses and the plan with the patient as well as the usual and expected course. The patient understands that the diagnosis is provisional and that in medicine we are not always correct and that further workup is often warranted. Usual and customary warnings were given. All of the patient's questions were answered. The patient was instructed to return to the emergency department should the symptoms at all worsen or return, otherwise to followup with the physician as we discussed. - Data Points Laboratory Results: Laboratory Results 04/11/18 09:31 04/11/18 09:31 Medications Given: Discontinued Medications Sodium Chloride (Ns) 500 mls @ 1,000 mls/hr IV EDNOW ONE PRN Reason: Protocol Stop: 04/11/18 09:43 Last Admin: 04/11/18 09:32 Dose: 500 mls Point of Care Test Results: Chemistry 04/11/18 09:36 POC Troponin I 0.01 ng/mL ng/mL (0.00-0.08) Departure - Departure Disposition: Home, Routine, Self-Care Clinical Impression: Palpitations, Anxiety Condition: Fair Instructions: Heart Palpitations (ED), Anxiety (ED) Referrals: Elsie Martin MD [Primary Care Provider] - As per Instructions Susy Anderson MD [Medical Doctor] - 2-3 days, call for appt.
--- NOTE | 2018-04-11 09:19 | CPEKG ---
Test Reason : OPEN Blood Pressure : / mmHG Vent. Rate : 062 BPM Atrial Rate : 062 BPM P-R Int : 150 ms QRS Dur : 097 ms QT Int : 408 ms P-R-T Axes : 076 058 075 degrees QTc Int : 415 ms Sinus rhythm Minimal ST depression, anterolateral leads Confirmed by Preston Lynn ([id number]) on 04/11/2018 9:18:23 AM Referred By: Preston Lynn Confirmed By:Preston Lynn
[2018-04-11 09:49] LABS: PLATELET COUNT 260 10^3/uL (150-400)
[2018-04-11 10:22] VITALS: BP 141/89
== END 2018-04-11 10:31 | disposition home or self-care (01) ==
DX: R00.2 Palpitations (principal); F41.9 Anxiety disorder, unspecified; I25.10 Atherosclerotic heart disease of native coronary artery without angina pectoris; Z95.5 Presence of coronary angioplasty implant and graft
CPT/HCPCS: 84484-ER